=== PATIENT | female | born 1990 | race Caucasian/White ===

== ENCOUNTER 2021-04-23 21:09 | Emergency (ER) | payer SELFPAY ==
[2021-04-23 21:12] VITALS: BP 103/67; PULSE 86; RESP 16; TEMP 36.9; O2SAT 99; BMI 24.2
[2021-04-23 21:17] VITALS: BP 113/83; PULSE 91; RESP 16; TEMP 36.9; O2SAT 95
--- NOTE | 2021-04-23 21:21 | CT_ITS ---
EXAM: CT ABDOMEN AND PELVIS WITH INTRAVENOUS CONTRAST CLINICAL INDICATION: abdominal pain TECHNIQUE: Helically acquired images were obtained of the abdomen and pelvis with intravenous contrast. CTDIvol = ( 11.67 ) mGy, DLP = ( 493.81 ) mGycm This CT exam was performed using one or more of the following dose reduction techniques: automated exposure control, adjustment of the mA and/or kV according to patient size, and/or use of iterative reconstruction technique. This report was created using [employer] report generation technology. CONTRAST: IV 100mL Isovue-300 COMPARISON: None. FINDINGS: LOWER THORAX: Unremarkable. Lung bases are clear. No cardiomegaly. No significant pericardial effusion. ABDOMEN: LIVER: Unremarkable. Homogeneous. No focal mass. GALLBLADDER AND BILE DUCTS: Unremarkable. No calcified gallstones. No gallbladder distention or wall edema. No intra- or extrahepatic biliary ductal dilation. PANCREAS: Unremarkable. No focal cystic or solid mass. SPLEEN: Unremarkable. Normal size without focal cystic or solid mass. ADRENALS: Unremarkable. No nodules. KIDNEYS AND URETERS: Unremarkable. Normal renal size and position. No hydronephrosis. STOMACH AND BOWEL: Fluid within nondistended loops of small bowel and within stomach without bowel wall thickening or surrounding inflammation can be normal or can be seen with gastroenteritis in the right clinical setting. No colitis, diverticulitis or bowel obstruction. PELVIS: APPENDIX: No appendicitis. BLADDER: Unremarkable. REPRODUCTIVE: Right ovarian heterogeneous but probably cystic mass measuring 5.3 cm. Small amount of free fluid in the right lower quadrant may be related to cyst leakage. ABDOMEN and PELVIS: INTRAPERITONEAL SPACE: Unremarkable. No ascites or other fluid collection. No free air. BONES/JOINTS: Unremarkable. No suspicious lytic or blastic abnormality. SOFT TISSUES: Unremarkable. No discrete abdominal or pelvic wall hernia. VASCULATURE: Unremarkable. Abdominal aorta is non-dilated. LYMPH NODES: Unremarkable. No enlarged lymph nodes. CT/Abdomen/Pelvis W IV Cont ONLY IMPRESSION: 1. Fluid within nondistended loops of small bowel and within stomach without bowel wall thickening or surrounding inflammation can be normal or can be seen with gastroenteritis in the right clinical setting. 2. Right ovarian heterogeneous but probably cystic mass measuring 5.3 cm. Small amount of free fluid in the right lower quadrant may be related to cyst leakage. Suggest further investigation/characterization with pelvic ultrasound. . Electronically Signed: Pedro Luis Elias MD at 22:55 EDT ,
--- NOTE | 2021-04-23 21:25 | EDS_ITS ---
HPI <DELONTE Toney - Last Filed: 04/23/21 22:01> History of Present Illness Chief Complaint: Abd Pain Narrative Narrative: 30-year-old female with PMH of ovarian cystss presents with lower abdominal pain. Yesterday she started her period and was having cramping. Today at 10 AM became severe and lasted about an hour. Then approximately 2 hours ago it became severe and will not let up. It hurts most in both lower quadrants. She feels nauseated but has not vomited. No fever or chills. She is having normal bladder and bowel movements. She states when she had an ovarian cyst before it needed surgically removed. She has never been . She denies vaginal discharge or concern for STD. She is not on control. PFSH <DELONTE Toney - Last Filed: 04/23/21 22:01> [facility] Medical History (Updated 04/23/21 @ 23:27 by Saulo France MD) Ovarian cyst Home Medications NK 04/23/21 [History Last Taken Unknown] Allergy/AdvReac Type Severity Reaction Status Date / Time No Known Allergies Allergy Verified 04/23/21 21:20 Social History Smoking Status: Never smoker ROS <DELONTE Toney - Last Filed: 04/23/21 22:01> ROS ED ROS Narrative Constitutional: Negative for fever, chills, malaise. Eyes: Negative for visual change. ENT: Negative for sore throat, ear pain, rhinorrhea. CVS: Negative for palpitations, chest pain, syncope. Respiratory: Negative for shortness of breath, cough, orthopnea. GI: Positive for abdominal pain, nausea. Negative for vomiting, diarrhea, c onstipation, melena, hematochezia. : Negative for dysuria, hematuria or frequency. Neuro: Negative for headache, motor/sensory dysfunction. Skin: Negative for rash, abscess, or wound. Musc: Negative for joint pain, swelling, trauma. Heme: Negative for easy bruising, bleeding, lymphadenopathy. EXAM <DELONTE Toney - Last Filed: 04/23/21 22:01> Physical Exam Narrative Exam Narrative: CONST: Patient appears in mild distress but nontoxic. EYES: Normal inspection. ENT: Normal inspection, moist mucous membranes. NECK: Normal inspection. RESP: No respiratory distress, CTAB. CVS: Regular rate and rhythm, no murmur, no gallop. ABD: Soft with tenderness in both lower quadrants no guarding or rebound, nondistended. Back: Normal inspection, no CVA tenderness. SKIN: Color normal, no rash, warm, dry, intact. EXTREMITIES: Normal appearance, no pedal edema. NEURO: Oriented x4. PSYCH: Normal affect. Const Vital Signs: 04/23/21 21:12 04/23/21 21:17 04/23/21 22:57 Temperature 98.4 F 98.4 F Temperature Source Temporal Temporal Pulse Rate 86 91 96 Respiratory Rate 16 16 16 Blood Pressure 103/67 113/83 H 89/61 L Blood Pressure Mean 79 93 70 Pulse Ox 99 95 95 Oxygen Delivery Method Room Air Room Air Room Air <Saulo France MD - Last Filed: 04/23/21 23:32> Physical Exam Const Vital Signs: 04/23/21 21:12 04/23/21 21:17 04/23/21 22:57 Temperature 98.4 F 98.4 F Temperature Source Temporal Temporal Pulse Rate 86 91 96 Respiratory Rate 16 16 16 Blood Pressure 103/67 113/83 H 89/61 L Blood Pressure Mean 79 93 70 Pulse Ox 99 95 95 Oxygen Delivery Method Room Air Room Air Room Air MDM <DELONTE Tnoey - Last Filed: 04/23/21 22:01> [facility] Narrative Medical decision making narrative: Patient presents with bilateral lower quadrant abdominal pain. She appears uncomfortable but nontoxic. Vital signs within normal limits. Her cardiopulmonary exam is unremarkable. She has significant bilateral lower quadrant tenderness but no peritoneal signs. No CVA tenderness. Labs show white count of 17.8. Mild hypokalemia of 3.3, otherwise unremarkable chemistry. test is negative. CT scan is pending and further care will be signed over to the attending. Lab Data Labs: Laboratory Results - last 24 hr 04/23/21 04/23/21 04/23/21 20:58 20:58 21:20 WBC 17.8 H RBC 4.04 L Hgb 12.9 Hct 37.9 MCV 93.8 MCH 31.9 MCHC 34.0 RDW Std Deviation 43.4 RDW Coeff of Aishwarya 12.5 Plt Count 258 MPV 9.2 Immature Gran % (Auto) 0.500 Neut % (Auto) 84.7 H Lymph % (Auto) 9.8 L Thomas % (Auto) 4.7 Eos % (Auto) 0.1 Baso % (Auto) 0.2 Absolute Neuts (auto) 15.1 H Absolute Lymphs (auto) 1.75 Nucleated RBC % 0 Sodium 138 Potassium 3.3 L Chloride 104 Carbon Dioxide 27.0 Anion Gap 7 BUN 13 Creatinine 0.72 Estim Creat Clear Calc 117.35 Est GFR (MDRD) Af Amer 124 Est GFR (MDRD) Non-Af 103 BUN/Creatinine Ratio 18.1 Glucose 118 H Calcium 9.5 Serum , Qual NEGATIVE Urine Color Urine Clarity Urine pH Ur Specific [place] Urine Protein Urine Glucose (UA) Urine Ketones Urine Occult Blood Urine Nitrite Urine Bilirubin Urine Urobilinogen Ur Leukocyte Esterase Urine RBC Urine WBC Ur Squamous Epith Cells Urine Bacteria Urine Mucus 04/23/21 22:30 WBC RBC Hgb Hct MCV MCH MCHC RDW Std Deviation RDW Coeff of Aishwarya Plt Count MPV Immature Gran % (Auto) Neut % (Auto) Lymph % (Auto) Thomas % (Auto) Eos % (Auto) Baso % (Auto) Absolute Neuts (auto) Absolute Lymphs (auto) Nucleated RBC % Sodium Potassium Chloride Carbon Dioxide Anion Gap BUN Creatinine Estim Creat Clear Calc Est GFR (MDRD) Af Amer Est GFR (MDRD) Non-Af BUN/Creatinine Ratio Glucose Calcium Serum , Qual Urine Color Yellow Urine Clarity Clear Urine pH 6.0 Ur Specific [place] 1.015 Urine Protein 15 H Urine Glucose (UA) Normal Urine Ketones 5 H Urine Occult Blood 250 H Urine Nitrite Negative Urine Bilirubin Negative Urine Urobilinogen Normal Ur Leukocyte Esterase Negative Urine RBC 10-25 SEEN Urine WBC 0 SEEN Ur Squamous Epith Cells 0-5 SEEN Urine Bacteria 0 SEEN Urine Mucus 0 SEEN Radiography Diagnostic Testing: Clinical Impression(s) from Imaging Studies Abdomen/Pelvis CT 04/23/21 21:21 IMPRESSION: 1. Fluid within nondistended loops of small bowel and within stomach without bowel wall thickening or surrounding inflammation can be normal or can be seen with gastroenteritis in the right clinical setting. 2. Right ovarian heterogeneous but probably cystic mass measuring 5.3 cm. Small amount of free fluid in the right lower quadrant may be related to cyst leakage. Suggest further investigation/characterization with pelvic ultrasound. . Electronically Signed: Pedro Luis Elias MD at 22:55 EDT , <Saulo France MD - Last Filed: 04/23/21 23:32> [facility] Narrative Medical decision making narrative: ATTENDING NOTE: Dr. France: The patient was seen in conjunction with the PA-C/nurse practitioner. I performed a history and physical, and agree with the management of this patient. I agree with noted documentation and plan. I discussed the plan of care and final disposition with the physician associate/nurse practitioner. Abdominal pain. Upon my examination, afebrile, vital signs noted. Regular rate and rhythm. Lungs clear to auscultation bilaterally. Abdomen soft and nontender. Her CT has returned. She has a right ovarian cyst at 5.3 cm. There is fluid in the pelvis consistent with possible leakage of said cyst. My concern is for intermittent ovarian torsion. In discussion with the patient, she states that she does not want to have transvaginal ultrasound performed. She was told of the risk of ovarian torsion and need for removal of ovary, sepsis, permanent disability, and . She acknowledges an understanding. I feel she has a capacity to sign out AGAINST MEDICAL ADVICE. She had discussed this with her . They were told that she can return to the emergency department at any time should she change her mind. At this point in time, she signed out AGAINST MEDICAL ADVICE to follow-up with her primary care physician or OPERATIONS SECTION MANAGER. Return instructions to the emergency department were reviewed. She states that she is feeling markedly improved. Disposition is signed out AGAINST MEDICAL ADVICE. She is in stable condition. Lab Data Attestation: I reviewed the patient's lab results. Labs: Laboratory Results - last 24 hr 04/23/21 04/23/21 04/23/21 20:58 20:58 21:20 WBC 17.8 H RBC 4.04 L Hgb 12.9 Hct 37.9 MCV 93.8 MCH 31.9 MCHC 34.0 RDW Std Deviation 43.4 RDW Coeff of Aishwarya 12.5 Plt Count 258 MPV 9.2 Immature Gran % (Auto) 0.500 Neut % (Auto) 84.7 H Lymph % (Auto) 9.8 L Thomas % (Auto) 4.7 Eos % (Auto) 0.1 Baso % (Auto) 0.2 Absolute Neuts (auto) 15.1 H Absolute Lymphs (auto) 1.75 Nucleated RBC % 0 Sodium 138 Potassium 3.3 L Chloride 104 Carbon Dioxide 27.0 Anion Gap 7 BUN 13 Creatinine 0.72 Estim Creat Clear Calc 117.35 Est GFR (MDRD) Af Amer 124 Est GFR (MDRD) Non-Af 103 BUN/Creatinine Ratio 18.1 Glucose 118 H Calcium 9.5 Serum , Qual NEGATIVE Urine Color Urine Clarity Urine pH Ur Specific [place] Urine Protein Urine Glucose (UA) Urine Ketones Urine Occult Blood Urine Nitrite Urine Bilirubin Urine Urobilinogen Ur Leukocyte Esterase Urine RBC Urine WBC Ur Squamous Epith Cells Urine Bacteria Urine Mucus 04/23/21 22:30 WBC RBC Hgb Hct MCV MCH MCHC RDW Std Deviation RDW Coeff of Aishwarya Plt Count MPV Immature Gran % (Auto) Neut % (Auto) Lymph % (Auto) Thomas % (Auto) Eos % (Auto) Baso % (Auto) Absolute Neuts (auto) Absolute Lymphs (auto) Nucleated RBC % Sodium Potassium Chloride Carbon Dioxide Anion Gap BUN Creatinine Estim Creat Clear Calc Est GFR (MDRD) Af Amer Est GFR (MDRD) Non-Af BUN/Creatinine Ratio Glucose Calcium Serum , Qual Urine Color Yellow Urine Clarity Clear Urine pH 6.0 Ur Specific [place] 1.015 Urine Protein 15 H Urine Glucose (UA) Normal Urine Ketones 5 H Urine Occult Blood 250 H Urine Nitrite Negative Urine Bilirubin Negative Urine Urobilinogen Normal Ur Leukocyte Esterase Negative Urine RBC 10-25 SEEN Urine WBC 0 SEEN Ur Squamous Epith Cells 0-5 SEEN Urine Bacteria 0 SEEN Urine Mucus 0 SEEN Radiography Diagnostic Testing: Clinical Impression(s) from Imaging Studies Abdomen/Pelvis CT 04/23/21 21:21 IMPRESSION: 1. Fluid within nondistended loops of small bowel and within stomach without bowel wall thickening or surrounding inflammation can be normal or can be seen with gastroenteritis in the right clinical setting. 2. Right ovarian heterogeneous but probably cystic mass measuring 5.3 cm. Small amount of free fluid in the right lower quadrant may be related to cyst leakage. Suggest further investigation/characterization with pelvic ultrasound. . Electronically Signed: Pedro Luis Elias MD at 22:55 EDT , Discharge Plan Triage Chief Complaint: Abd Pain ED Provider: Lorin Nichole Dx/Rx/DC Orders Clinical Impression: Ovarian cyst, Abdominal pain, Pelvic pain, Left against medical advice Instructions: ED Ovarian Cyst Prescriptions: No Action NK RF: 0 Primary Care Provider: Care Physician,No Primary Referrals: Care Physician,No Primary [Primary Care Provider] - Activity Restrictions/Additional Instructions: Follow-up with your primary care provider or your OPERATIONS SECTION MANAGER as soon as possible. Should you change your mind about signing out AGAINST MEDICAL ADVICE, you may return to the emergency department at any time. Disposition Disposition: Against Medical Advice
[2021-04-23] MEDS: Ondansetron 4 MG/2 ML Vial IV (21:27)
[2021-04-23] MEDS: 0.9% Normal Saline 1,000 ML 999 ML IV (21:27)
[2021-04-23] MEDS: Ketorolac 15 MG/ML Vial IV (21:27)
[2021-04-23 21:38] LABS: Absolute Lymphocyte Count 1.75 X10^3/uL (0.83-4.51); Absolute Neutrophil Count 15.1 X10^3/uL (2.0-7.7); Basophil# 0.04 X10^3/uL; Basophil% 0.2 % (0-1); Eosinophil# 0.01 X10^3/uL; Eosinophils% 0.1 % (0-5); Hematocrit 37.9 % (37-47); Hemoglobin 12.9 g/dL (12.0-15.0); Lymphocyte # 1.75 X10^3/ul (0.83-4.51); Lymphocyte % 9.8 % (19-41); Mean Corpuscular Hgb 31.9 pg (27.0-32.0); Mean Corpuscular Volume 93.8 fL (81-99); Mean Platelet Vol. 9.2 fl (6.2-12.0); Monocyte# 0.83 X10^3/uL; Monocyte% 4.7 % (0-10); NRBC Flagged by Analyzer 0 % (0-5); Neutrophil # 15.12 X10^3/uL (2.7-7.7); Neutrophil % 84.7 % (47-70); Platelet Count 258 K/mm3 (150-450); RBC Distribution Width CV 12.5 % (11.6-14.6); RBC Distribution Width SD 43.4 fl (35.1-43.9); Red Blood Count 4.04 M/mm3 (4.2-5.4); White Blood Count 17.8 K/mm3 (4.4-11.0)
[2021-04-23 21:52] LABS: Internal QC Validated? YES +Cl - CLEAR BKGD; Pregnancy, Serum, hCG Quali. NEGATIVE Negative
[2021-04-23 21:53] LABS: Anion Gap 7 (5-15); BUN 13 mg/dL (7-18); BUN/Creat Ratio 18.1 RATIO (10-20); Calcium,Total 9.5 mg/dL (8.5-10.1); Chloride 104 mmol/L (98-107); Creatinine, Serum 0.72 mg/dL (0.55-1.02); EST Glomerular Filtration Rate 103 mL/min (>60); Est Glom Filt Rate - Afr Amer 124 mL/min (>60); Estimated Creatinine Clearance 117.35 ml/min; Glucose 118 mg/dL (74-106); Potassium 3.3 mmol/L (3.5-5.1); Sodium Level 138 mmol/L (136-145)
[2021-04-23 22:41] LABS: Bacteria 0 SEEN /hpf (None Seen); Mucous, Urine 0 SEEN /hpf (<or=2+); White Blood Cells 0 SEEN /hpf (0-5)
[2021-04-23 22:45] LABS: Color, Urine Yellow (Yellow); Glucose, Dipstick Normal (Normal); Ketone-Dipstick 5 mg/dl (Negative); Leukocyte Esterase-Dipstick Negative /ul (Negative); Nitrite-Dipstick Negative (Negative); Occult Blood-Urine 250 /ul (Negative); Protein-Dipstick 15 mg/dl (Negative); Specific Gravity, Urine 1.015 (1.002-1.030); Urine Bilirubin Dipstick Negative (Negative); Urine Clarity Clear (Clear); Urine Urobilinogen Normal (Normal)
[2021-04-23 22:51] LABS: Red Blood Cells-Urine 10-25 SEEN /hpf (0-5); Squamous Epithelial Cells - UA 0-5 SEEN /hpf (5-10)
[2021-04-23 22:57] VITALS: BP 89/61; PULSE 96; RESP 16; O2SAT 95
[2021-04-23 23:38] VITALS: BP 94/60; PULSE 96; RESP 16; O2SAT 98
== END 2021-04-23 23:39 | disposition left against medical advice (07) ==
PROVIDERS: Emergency Provider Physician Assistant; Visit Provider Physician Assistant
DX: N83.201 Unspecified ovarian cyst, right side (principal); Z53.29 Procedure and treatment not carried out because of patient's decision for other reasons
CPT/HCPCS: 74177; 80048; 81001; 84703; 85025; 96361; 96374; 96375; 99285; J7030; Q9967; A4216; J2405